=== PATIENT | female | born 1960 | race Two or more races ===

== ENCOUNTER 2024-01-30 08:00 | Inpatient (IN) | payer OTHER ==
[~2024-01-30] VITALS: Ht 167.6 cm; Wt 68.9 kg
[2024-01-30] MEDS ORDERED: NEURONTIN300 MG PO (08:21)
[2024-01-30] MEDS ORDERED: ATENOLOL25 MG PO (08:21)
[2024-01-30] MEDS ORDERED: LIPOFEN50 MG PO (08:21)
--- NOTE | 2024-01-30 08:24 | NUR ---
PACIENTE ALERTA Y ORIENTADA X3 REFERIDA POR DRA. GAURAV GONZALEZ PARA PROCEDIMIENTO QUIRURGICO SHWETA EL YULISSA DE MANANA. SE АЛЕКСАНДР S/V Y SE UBICA.
[2024-01-30] MEDS ORDERED: 0.9 % SODIUM CHLORIDE 1,000 ML IV ONE (09:00)
--- NOTE | 2024-01-30 09:16 | NUR ---
SE ORIENTA A PACIENTE SOBRE TX MEDICO, REFIERE ENTENDER. SE EJECUTAN ORDENES DE ADMISION.
[2024-01-30 09:27] VITALS: BP 143/87
[2024-01-30 09:28] LABS: HEMATOCRIT 38.2 % (36.0-45.00); HEMOGLOBIN 13.2 g/dL (12.0-15.00); MEAN CELL VOLUME 90.8 fL (80.00-100.00); MEAN CORPUSCULAR HEMOGLOBIN 31.3 pg (27.00-32.0); MEAN CORPUSCULAR HGB CONC 34.4 g/dl (32.0-36.0); PLATELET COUNT 437 K/uL (150-450); RED BLOOD COUNT 4.21 M/uL (4.00-6.00); RED CELL DISTRIBUTION WIDTH 14.5 % (11.5-14.5)
[2024-01-30 09:46] LABS: PARTIAL THROMBOPLASTIN TIME 27.3 SECONDS (22.0-34.0); PROTHROMBIN TIME 10.9 SECONDS (9.0-11.5)
[2024-01-30 09:58] LABS: BILIRUBIN TOTAL 0.36 mg/dL (0.3-1.2); CALCIUM 9.5 mg/dL (8.5-10.1); CREATININE SERUM 1.1 mg/dL (0.55-1.02); GFR 50.33; GLOBULINA 4.7 G/DL (2.4-3.5); POTASSIUM 3.78 mEq/L (3.5-5.1); TOTAL PROTEIN 8.7 gm/dL (6.4-8.2)
[2024-01-30 10:03] LABS: URINE APPEARANCE Clear; URINE BILIRRUBIN Negative (NEGATIVE); URINE BLOOD Negative; URINE COLOR Yellow; URINE GLUCOSE Negative (NEGATIVE); URINE KETONE Negative (NEGATIVE); URINE LEUKOCYTE Small; URINE NITRATE Negative; URINE PROTEIN Negative (NEGATIVE); URINE UROBILINOGEN 0.2 E.U./dl
[2024-01-30 10:06] LABS: URINE BACTERIA 6.1 uL (0.0-1933); URINE EPITHELIAL CELLS 6.1 uL (0.0-38.8); URINE RBC 6.7 uL (0.0-20.8); URINE WBC 10.1 uL (0.0-23.2)
[2024-01-30 10:15] LABS: URINE CAST 0.29 uL (0.0-1.40)
[2024-01-30] MEDS ORDERED: MORPHINE SULFATE 4 MG/ML CARTRIDGE IV PRN (10:15)
[2024-01-30] MEDS ORDERED: ONDANSETRON HCL 2 MG/ML VIAL IV PRN (10:15)
[2024-01-30 15:58] VITALS: BP 135/69; O2SAT 97
[2024-01-30] MEDS ORDERED: MAGNESIUM CITRATE 296 ML BOTTLE PO STA (16:40)
[2024-01-30] MEDS ORDERED: ENALAPRILAT DIHYDRATE 1.25 MG/ML VIAL IV PRN (19:45)
[2024-01-30] MEDS ORDERED: FAMOTIDINE/PF 20 MG/2 ML VIAL IV SCH (21:00)
[2024-01-31] MEDS ORDERED: levoFLOXacin IN DEXTROSE 5 % 150 ML IV NR
[2024-01-31] MEDS ORDERED: METRONIDAZOLE/SODIUM CHLORIDE 200 ML IV NR
[2024-01-31 00:09] VITALS: BP 129/64; O2SAT 95
[2024-01-31] MEDS ORDERED: SUGAMMADEX SODIUM 200 MG/2 ML VIAL IV ONE (08:45)
[2024-01-31] MEDS ORDERED: LACTOBACILLUS ACIDOPHILUS 1 CAP CAP PO SCH (09:00)
[2024-01-31] MEDS ORDERED: BUPIVACAINE HCL 30 ML VIAL IJ ONE (09:00)
[2024-01-31] MEDS ORDERED: LIDOCAINE HCL 1%/EPINEPHRINE 20ML VIAL IJ ONE (09:30)
[2024-01-31] MEDS ORDERED: ONDANSETRON HCL 2 MG/ML VIAL IV ONE (10:05)
[2024-01-31] MEDS ORDERED: KETOROLAC TROMETHAMINE 60 MG VIAL IM ONE (11:30)
[2024-01-31] MEDS ORDERED: HYOSCYAMINE SULFATE 0.125 MG TAB.SUBL SL SCH (13:00)
[2024-01-31] MEDS ORDERED: SIMETHICONE 125 MG CAPSULE PO SCH (13:00)
[2024-01-31] MEDS ORDERED: OxyCODONE HCL 5 MG TABLET (ROXICODONE) PO PRN (13:00)
[2024-01-31] MEDS ORDERED: ONDANSETRON HCL 2 MG/ML VIAL IV PRN (13:00)
[2024-01-31] MEDS ORDERED: MORPHINE SULFATE 4 MG/ML CARTRIDGE IV PRN (13:00)
[2024-01-31] MEDS ORDERED: RINGERS SOLUTION,LACTATED 1,000 ML IV SCH (13:00)
[2024-01-31 13:43] LABS: HEMATOCRIT 39.8 % (36.0-45.00); HEMOGLOBIN 12.9 g/dL (12.0-15.00); MEAN CELL VOLUME 92.5 fL (80.00-100.00); MEAN CORPUSCULAR HGB CONC 32.5 g/dl (32.0-36.0); PLATELET COUNT 367 K/uL (150-450); RED CELL DISTRIBUTION WIDTH 14.8 % (11.5-14.5)
[2024-01-31 13:46] VITALS: BP 145/77; O2SAT 95
[2024-01-31] MEDS ORDERED: ACETAMINOPHEN 500 MG GEL..CAP PO SCH (14:00)
[2024-01-31 17:00] VITALS: BP 122/88; O2SAT 100
[2024-01-31] MEDS ORDERED: METOCLOPRAMIDE HCL 5 MG/ML VIAL IV SCH (17:00)
[2024-01-31] MEDS ORDERED: GABAPENTIN 300 MG CAPSULE PO SCH (17:00)
[2024-01-31] MEDS ORDERED: CIPROFLOXACIN IN 5 % DEXTROSE 400 MG/200 ML PIGGYBAG IV SCH (21:00)
[2024-01-31] MEDS ORDERED: CIPROFLOXACIN IN 5 % DEXTROSE 200 MG/100 ML PIGGYBAG IV SCH (21:00)
[2024-01-31] MEDS ORDERED: FAMOTIDINE/PF 20 MG/2 ML VIAL IV PUSH SCH (21:00)
[2024-02-01] MEDS ORDERED: METRONIDAZOLE/SODIUM CHLORIDE 100 ML IV SCH (01:00)
[2024-02-01 01:29] VITALS: BP 113/63; O2SAT 97
[2024-02-01 06:52] LABS: HEMATOCRIT 34.1 % (36.0-45.00); HEMOGLOBIN 11.5 g/dL (12.0-15.00); MEAN CELL VOLUME 90.9 fL (80.00-100.00); MEAN CORPUSCULAR HEMOGLOBIN 30.7 pg (27.00-32.0); MEAN CORPUSCULAR HGB CONC 33.8 g/dl (32.0-36.0); PLATELET COUNT 331 K/uL (150-450); RED BLOOD COUNT 3.75 M/uL (4.00-6.00); RED CELL DISTRIBUTION WIDTH 14.5 % (11.5-14.5)
[2024-02-01 07:28] LABS: CALCIUM 8.4 mg/dL (8.5-10.1); CREATININE SERUM 0.92 mg/dL (0.55-1.02); GFR 61.85; MAGNESIUM 2.4 mg/dL (1.8-2.4); PHOSPHOROUS 3.2 mg/dL (2.5-4.9); POTASSIUM 4.95 mEq/L (3.5-5.1)
[2024-02-01 08:44] VITALS: BP 106/60; O2SAT 97
[2024-02-01] MEDS ORDERED: LACTOBACILLUS ACIDOPHILUS 1 CAP CAP PO SCH (09:00)
[2024-02-01 16:00] VITALS: BP 130/65; O2SAT 97
[2024-02-01] MEDS ORDERED: ENOXAPARIN SODIUM 40 MG/0.4 ML SYRINGE SUBCUTANEO SCH (17:00)
[2024-02-01] MEDS ORDERED: FLUTICASONE PROPIONATE 50 MCG SPRAY NASAL SCH (21:39)
[2024-02-01] MEDS ORDERED: LORATADINE 10 MG TABLET PO SCH (21:45)
[2024-02-02 00:10] VITALS: BP 129/79; O2SAT 99
[2024-02-02 08:00] VITALS: BP 145/76; O2SAT 98
[2024-02-02] MEDS ORDERED: ENOXAPARIN SODIUM 40 MG/0.4 ML SYRINGE SUBCUTANEO SCH (09:00)
[2024-02-02 16:00] VITALS: BP 136/72; O2SAT 95
[2024-02-03 01:46] VITALS: BP 130/70; O2SAT 98
[2024-02-03 09:42] VITALS: BP 161/84; O2SAT 99
== END 2024-02-03 13:35 | disposition home or self-care (01) | DRG 337 ==
LOC: ER 08:00 → SURH 09:20 → SURG 09:20 → SURH 01-31 13:30
PROVIDERS: General Practice; ADMIT Surgery; ATTEND Surgery
PROC: 0DTJ4ZZ Resection of Appendix, Percutaneous Endoscopic Approach (ICD-10-PCS; 2024-01-31)
PROC: 0W9J4ZZ Drainage of Pelvic Cavity, Percutaneous Endoscopic Approach (ICD-10-PCS; 2024-01-31)
PROC: BW21ZZZ Computerized Tomography (CT Scan) of Abdomen and Pelvis (ICD-10-PCS; 2024-01-31)
PROC: 0DNW4ZZ Release Peritoneum, Percutaneous Endoscopic Approach (ICD-10-PCS; principal; 2024-01-31 08:00)
DX: K35.33 Acute appendicitis with perforation, localized peritonitis, and gangrene, with abscess (principal); K57.30 Diverticulosis of large intestine without perforation or abscess without bleeding; I10 Essential (primary) hypertension